=== PATIENT | male | born 1935 | race Caucasian/White ===

== ENCOUNTER 2017-07-11 17:20 | Inpatient (IN) | payer MEDICARE ==
[~2017-07-11] VITALS: Ht 175.3 cm; Wt 91.8 kg
[2017-07-11 17:59] LABS: BASOPHILS % (AUTO) 0.6 % (0-1); EOSINOPHILS # (AUTO) 0.1 X10'3 (0-0.9); EOSINOPHILS % (AUTO) 1.9 % (0-6); HEMOGLOBIN 16.5 g/dl (14.0-17.9); LYMPHOCYTES # (AUTO) 1.4 X10'3 (1.1-4.8); LYMPHOCYTES % (AUTO) 20.7 % (21-51); MEAN CORPUSCULAR HEMOGLOBIN 32.3 PG (27.0-31.0); MEAN CORPUSCULAR HGB CONC 35.1 % (33.0-36.5); MEAN CORPUSCULAR VOLUME 91.9 FL (78-98); MEAN PLATELET VOLUME 8.7 FL (7.4-10.4); MONOCYTES # (AUTO) 0.5 X10'3 (0-0.9); MONOCYTES % (AUTO) 6.6 % (2-12); NEUTROPHILS # (AUTO) 4.9 X10'3 (1.8-7.7); NEUTROPHILS % (AUTO) 70.2 % (42-75); PLATELET COUNT 135 X10'3 (140-440); RED BLOOD COUNT 5.11 X10'6 (4.70-6.10); RED CELL DISTRIBUTION WIDTH 14.2 % (11.5-14.5); WHITE BLOOD COUNT 6.9 X10'3 (4.5-11.0)
[2017-07-11 18:03] LABS: PARTIAL THROMBOPLASTIN TIME 27 SECONDS (22-32); PROTHROMBIN TIME 10.7 SECONDS (9.0-12.0)
[2017-07-11 18:10] LABS: ALANINE AMINOTRANSFERASE 44 U/L (12-78); ALBUMIN 4.1 G/DL (3.4-5.0); ALBUMIN/GLOBULIN RATIO 1.2 (1.1-1.5); ALKALINE PHOSPHATASE 112 IU/L (46-116); ANION GAP 10 (8-16); ASPARTATE AMINO TRANSFERASE 31 U/L (10-37); BILIRUBIN,TOTAL 0.5 MG/DL (0.1-1.0); BLOOD UREA NITROGEN 20 MG/DL (7-18); BUN/CREATININE RATIO 17.5 (5.4-32.0); CHLORIDE 106 MMOL/L (99-107); CREATININE 1.14 MG/DL (0.60-1.10); GLUCOSE 113 MG/DL (70-104); POTASSIUM 4.7 MMOL/L (3.5-5.1); SODIUM 143 MMOL/L (135-145); TOTAL CARBON DIOXIDE 26.8 MMOL/L (24-32); TOTAL PROTEIN 7.6 G/DL (6.4-8.2); eGFR 61 ML/MIN
[2017-07-11 18:13] LABS: CLARITY,URINE CLEAR (Clear); COLOR,URINE YELLOW (Yellow); GLUCOSE, URINE NEGATIVE (Neg); KETONES,URINE NEGATIVE (Neg); LEUKOCYTE ESTERASE ,URINE NEGATIVE (Neg); NITRITES, URINE NEGATIVE (Neg); OCCULT BLOOD,URINE TRACE-INTACT (Neg); PROTEIN,URINE 30 mg/dl (Neg); UROBILINOGEN,URINE 0.2 E.U/dL (0.2-1.0)
[2017-07-11 18:14] LABS: UA COLLECTION TYPE VOIDED
[2017-07-11 18:19] LABS: BACTERIA,URINE FEW /HPF (Neg); RBC,URINE 0-2 /HPF (0-2); SQUAMOUS EPITHELIAL CELL,UR FEW /LPF (FEW); WBC,URINE 0-4 /HPF (0-4)
[2017-07-11] MEDS ORDERED: aspirin 325mg tablet PO ONE (21:20)
[2017-07-11] MEDS ORDERED: acetaminophen 325mg tablet PO PRN (23:20)
[2017-07-11] MEDS ORDERED: ondansetron/PF 4mg/2ml inj IV PRN (23:20)
[2017-07-11] MEDS ORDERED: magnesium hydroxide 30ml (MOM) UD suspension PO PRN (23:20)
[2017-07-11] MEDS ORDERED: mag hydrox/Alum hydrox/simeth 30ml oral suspension PO PRN (23:20)
[2017-07-11] MEDS ORDERED: potassium Cl 40MEQ/NS 500ml 500 ML IV PRN ×2 (23:20)
[2017-07-11] MEDS ORDERED: potassium Cl 20 mEq SR tablet PO PRN ×2 (23:20)
[2017-07-11] MEDS ORDERED: dextrose 50%-water 50ml dispensing syringe IV PRN ×2 (23:25)
[2017-07-11] MEDS ORDERED: MESSAGE TO PHARMACY PO ONE (23:25)
[2017-07-11] MEDS ORDERED: insulin Lispro (HumaLOG) vial - multi-dose SQ SCH (23:25)
[2017-07-11] MEDS ORDERED: glucagon, human recombinant 1mg kit SUBCUT PRN (23:25)
[2017-07-11] MEDS ORDERED: dextrose ORAL solution 15 GM/59 ML bottle PO PRN ×2 (23:25)
[2017-07-12] MEDS: normal saline 1000ml 1,000 ML IV SCH ×2 (00:24→20:10)
[2017-07-12 03:20] VITALS: BP 163/71
[2017-07-12 05:00] VITALS: BP 175/76
[2017-07-12 05:55] LABS: BASOPHILS % (AUTO) 0.4 % (0-1); EOSINOPHILS # (AUTO) 0.1 X10'3 (0-0.9); EOSINOPHILS % (AUTO) 2.4 % (0-6); HEMATOCRIT 43.7 % (42.0-52.0); HEMOGLOBIN 15.5 g/dl (14.0-17.9); LYMPHOCYTES # (AUTO) 1.2 X10'3 (1.1-4.8); LYMPHOCYTES % (AUTO) 20.7 % (21-51); MEAN CORPUSCULAR HEMOGLOBIN 32.5 PG (27.0-31.0); MEAN CORPUSCULAR HGB CONC 35.5 % (33.0-36.5); MEAN CORPUSCULAR VOLUME 91.6 FL (78-98); MEAN PLATELET VOLUME 8.7 FL (7.4-10.4); MONOCYTES # (AUTO) 0.4 X10'3 (0-0.9); MONOCYTES % (AUTO) 6.4 % (2-12); NEUTROPHILS % (AUTO) 70.1 % (42-75); PLATELET COUNT 100 X10'3 (140-440); RED BLOOD COUNT 4.78 X10'6 (4.70-6.10); RED CELL DISTRIBUTION WIDTH 13.9 % (11.5-14.5); WHITE BLOOD COUNT 5.7 X10'3 (4.5-11.0)
[2017-07-12 06:25] LABS: ALBUMIN 3.6 G/DL (3.4-5.0); ANION GAP 10 (8-16); BLOOD UREA NITROGEN 16 MG/DL (7-18); CALCIUM 8.4 MG/DL (8.5-10.1); CHLORIDE 106 MMOL/L (99-107); CREATININE 1.14 MG/DL (0.60-1.10); GLUCOSE 104 MG/DL (70-104); POTASSIUM 3.8 MMOL/L (3.5-5.1); SODIUM 143 MMOL/L (135-145); TOTAL CARBON DIOXIDE 27.3 MMOL/L (24-32); eGFR 61 ML/MIN
[2017-07-12] MEDS ORDERED: losartan 50mg tablet PO SCH (08:00)
[2017-07-12] MEDS: K and/or MAG REPLACEMENT MC SCH (08:00)
[2017-07-12] MEDS: aspirin 81mg tablet.DR PO SCH (08:29)
[2017-07-12 10:00] VITALS: BP 108/72
[2017-07-12] MEDS ORDERED: TEST200V10 (10:42)
[2017-07-12] MEDS ORDERED: LOSA50TA37 PO (10:42)
[2017-07-12] MEDS ORDERED: METF10002 PO (10:42)
[2017-07-12] MEDS ORDERED: PARO20TA6 PO (10:42)
[2017-07-12] MEDS ORDERED: LEVO50TA PO (10:42)
[2017-07-12] MEDS ORDERED: SIMV40TA4 PO (10:42)
[2017-07-12 14:00] VITALS: BP 152/77
[2017-07-12 18:00] VITALS: BP 144/70
[2017-07-12] MEDS: PARoxetine 20mg tablet PO SCH (20:09)
[2017-07-12] MEDS: atorvastatin 10mg tablet PO SCH (20:09)
[2017-07-12] MEDS: losartan 25mg tablet PO SCH (20:09)
[2017-07-12] MEDS: insulin glargine (Lantus) pen - multi-dose SQ SCH (21:00)
[2017-07-12 22:00] VITALS: BP 144/64
[2017-07-13] VITALS (13 sets, daily range): BP systolic 132–161; BP diastolic 63–92
[2017-07-13 06:22] LABS: BASOPHILS % (AUTO) 0.2 % (0-1); EOSINOPHILS # (AUTO) 0.2 X10'3 (0-0.9); EOSINOPHILS % (AUTO) 2.8 % (0-6); HEMATOCRIT 43.7 % (42.0-52.0); HEMOGLOBIN 15.4 g/dl (14.0-17.9); LYMPHOCYTES # (AUTO) 1.1 X10'3 (1.1-4.8); LYMPHOCYTES % (AUTO) 18.3 % (21-51); MEAN CORPUSCULAR HEMOGLOBIN 32.7 PG (27.0-31.0); MEAN CORPUSCULAR HGB CONC 35.4 % (33.0-36.5); MEAN CORPUSCULAR VOLUME 92.5 FL (78-98); MEAN PLATELET VOLUME 8.6 FL (7.4-10.4); MONOCYTES # (AUTO) 0.4 X10'3 (0-0.9); MONOCYTES % (AUTO) 6.3 % (2-12); NEUTROPHILS # (AUTO) 4.4 X10'3 (1.8-7.7); NEUTROPHILS % (AUTO) 72.4 % (42-75); PLATELET COUNT 103 X10'3 (140-440); RED BLOOD COUNT 4.72 X10'6 (4.70-6.10); RED CELL DISTRIBUTION WIDTH 14.1 % (11.5-14.5); WHITE BLOOD COUNT 6.1 X10'3 (4.5-11.0)
[2017-07-13 06:27] LABS: ALBUMIN 3.5 G/DL (3.4-5.0); ANION GAP 8 (8-16); BLOOD UREA NITROGEN 14 MG/DL (7-18); BUN/CREATININE RATIO 14.1 (5.4-32.0); CALCIUM 8.5 MG/DL (8.5-10.1); CHLORIDE 107 MMOL/L (99-107); CREATININE 0.99 MG/DL (0.60-1.10); GLUCOSE 117 MG/DL (70-104); SODIUM 143 MMOL/L (135-145); TOTAL CARBON DIOXIDE 27.7 MMOL/L (24-32); eGFR 72 ML/MIN
[2017-07-13] MEDS: K and/or MAG REPLACEMENT MC SCH (07:17)
[2017-07-13] MEDS: aspirin 81mg tablet.DR PO SCH (07:18)
[2017-07-13] MEDS: levoTHYROXINE 25mcg tablet PO SCH (07:19)
[2017-07-13] MEDS: PARoxetine 20mg tablet PO SCH ×2 (07:19→20:20)
[2017-07-13] MEDS ORDERED: LEVOTHYROXINE SODIUM 50 MCG PO SCH (08:00)
[2017-07-13] MEDS: normal saline 1000ml 1,000 ML IV SCH (15:16)
[2017-07-13] MEDS ORDERED: fentaNYL/PF 50MCG/1 ML 2ML syringe ONE (16:01)
[2017-07-13] MEDS ORDERED: MIDAZolam 5mg/5ml vial ONE (16:01)
[2017-07-13] MEDS ORDERED: LIDOcaine Viscous 15ml cup ONE (16:01)
[2017-07-13] MEDS: pantoprazole 40mg Tablet.DR PO SCH (20:20)
[2017-07-13] MEDS: losartan 25mg tablet PO SCH (20:20)
[2017-07-13] MEDS: atorvastatin 10mg tablet PO SCH (20:20)
[2017-07-13] MEDS: insulin glargine (Lantus) pen - multi-dose SQ SCH (21:00)
[2017-07-14 02:00] VITALS: BP 151/74
[2017-07-14 05:00] VITALS: BP 157/74
[2017-07-14] MEDS: normal saline 1000ml 1,000 ML IV SCH (05:47)
[2017-07-14 06:39] LABS: BASOPHILS % (AUTO) 0.4 % (0-1); EOSINOPHILS # (AUTO) 0.2 X10'3 (0-0.9); EOSINOPHILS % (AUTO) 2.4 % (0-6); HEMATOCRIT 46.7 % (42.0-52.0); HEMOGLOBIN 15.8 g/dl (14.0-17.9); LYMPHOCYTES # (AUTO) 1.4 X10'3 (1.1-4.8); LYMPHOCYTES % (AUTO) 19.1 % (21-51); MEAN CORPUSCULAR HEMOGLOBIN 32.2 PG (27.0-31.0); MEAN CORPUSCULAR HGB CONC 33.9 % (33.0-36.5); MEAN CORPUSCULAR VOLUME 94.9 FL (78-98); MEAN PLATELET VOLUME 9.4 FL (7.4-10.4); MONOCYTES # (AUTO) 0.5 X10'3 (0-0.9); MONOCYTES % (AUTO) 6.8 % (2-12); NEUTROPHILS # (AUTO) 5.3 X10'3 (1.8-7.7); NEUTROPHILS % (AUTO) 71.3 % (42-75); PLATELET COUNT 98 X10'3 (140-440); RED BLOOD COUNT 4.93 X10'6 (4.70-6.10); WHITE BLOOD COUNT 7.4 X10'3 (4.5-11.0)
[2017-07-14 06:56] LABS: ALBUMIN 3.5 G/DL (3.4-5.0); ANION GAP 10 (8-16); BLOOD UREA NITROGEN 15 MG/DL (7-18); CALCIUM 8.5 MG/DL (8.5-10.1); CHLORIDE 105 MMOL/L (99-107); CREATININE 0.94 MG/DL (0.60-1.10); GLUCOSE 95 MG/DL (70-104); SODIUM 140 MMOL/L (135-145); TOTAL CARBON DIOXIDE 25.4 MMOL/L (24-32); eGFR 77 ML/MIN
[2017-07-14] MEDS: K and/or MAG REPLACEMENT MC SCH (07:25)
[2017-07-14] MEDS: aspirin 81mg tablet.DR PO SCH (07:35)
[2017-07-14] MEDS: levoTHYROXINE 25mcg tablet PO SCH (07:35)
[2017-07-14] MEDS: pantoprazole 40mg Tablet.DR PO SCH (07:36)
[2017-07-14] MEDS: PARoxetine 20mg tablet PO SCH (07:36)
[2017-07-14 10:00] VITALS: BP 151/73
[2017-07-14] MEDS ORDERED: OMEP20CA10 PO (11:37)
== END 2017-07-14 12:30 | disposition home or self-care (01) | DRG 698 ==
LOC: ER 17:21 → ED HOLD 23:16 → EDBEDREQ 07-12 02:04 → ORTHO 4S 07-12 03:20
PROVIDERS: ADMIT Family Medicine; ATTEND Internal Medicine
PROC: 0DB58ZX Excision of Esophagus, Via Natural or Artificial Opening Endoscopic, Diagnostic (ICD-10-PCS; principal; 2017-07-13)
PROC: 0DB68ZX Excision of Stomach, Via Natural or Artificial Opening Endoscopic, Diagnostic (ICD-10-PCS; 2017-07-13)
DX: N28.9 Disorder of kidney and ureter, unspecified (principal); G93.40 Encephalopathy, unspecified; G20 Parkinson's disease; R47.01 Aphasia; E11.9 Type 2 diabetes mellitus without complications; H35.30 Unspecified macular degeneration; K29.70 Gastritis, unspecified, without bleeding; F32.9 Major depressive disorder, single episode, unspecified; E03.9 Hypothyroidism, unspecified; E78.5 Hyperlipidemia, unspecified; F17.290 Nicotine dependence, other tobacco product, uncomplicated; G47.30 Sleep apnea, unspecified; I10 Essential (primary) hypertension; Z80.3 Family history of malignant neoplasm of breast; Z82.0 Family history of epilepsy and other diseases of the nervous system; Z83.3 Family history of diabetes mellitus
CPT/HCPCS: 36415; 43239; 70450; 71045; 80048; 80053; 81001; 82948; 83036; 84439; 84443; 84484; 85025; 85610; 85730; 87070; 92616; 93005; 97110; 97116; 97161; A4620; G0500; J1815; J2250; J3010; J7030

== ENCOUNTER 2017-10-02 13:09 | Inpatient (IN) | payer MEDICARE, OTHER ==
[~2017-10-02] VITALS: Ht 180.3 cm; Wt 81.0 kg
[~2017-10-02 13:09] MED LIST: LEVO50TA PO; LOSA50TA37 PO; METF10004 PO; OMEP20CA10 PO; PARO20TA6 PO; SIMV40TA4 PO; TEST200V10
[2017-10-02] MEDS ORDERED: normal saline 1000ML IV soln IVB ONE (13:15)
[2017-10-02 13:37] LABS: BASOPHILS % (AUTO) 0.2 % (0-1); EOSINOPHILS # (AUTO) 0.3 X10'3 (0-0.9); EOSINOPHILS % (AUTO) 3.5 % (0-6); HEMATOCRIT 41.8 % (42.0-52.0); HEMOGLOBIN 14.7 g/dl (14.0-17.9); LYMPHOCYTES # (AUTO) 1.5 X10'3 (1.1-4.8); LYMPHOCYTES % (AUTO) 19.6 % (21-51); MEAN CORPUSCULAR HEMOGLOBIN 32.6 PG (27.0-31.0); MEAN CORPUSCULAR HGB CONC 35.1 % (33.0-36.5); MEAN CORPUSCULAR VOLUME 92.9 FL (78-98); MEAN PLATELET VOLUME 8.2 FL (7.4-10.4); MONOCYTES # (AUTO) 0.5 X10'3 (0-0.9); MONOCYTES % (AUTO) 7.4 % (2-12); NEUTROPHILS # (AUTO) 5.2 X10'3 (1.8-7.7); NEUTROPHILS % (AUTO) 69.3 % (42-75); PLATELET COUNT 137 X10'3 (140-440); RED CELL DISTRIBUTION WIDTH 13.9 % (11.5-14.5); WHITE BLOOD COUNT 7.5 X10'3 (4.5-11.0)
[2017-10-02 13:46] LABS: PROTHROMBIN TIME 10.7 SECONDS (9.0-12.0)
[2017-10-02 14:38] LABS: ALANINE AMINOTRANSFERASE 30 U/L (12-78); ALBUMIN 3.8 G/DL (3.4-5.0); ALKALINE PHOSPHATASE 122 IU/L (46-116); ANION GAP 7 (8-16); ASPARTATE AMINO TRANSFERASE 24 U/L (10-37); BILIRUBIN,TOTAL 0.5 MG/DL (0.1-1.0); BLOOD UREA NITROGEN 20 MG/DL (7-18); BUN/CREATININE RATIO 14.8 (5.4-32.0); CHLORIDE 105 MMOL/L (99-107); CREATININE 1.35 MG/DL (0.60-1.10); GLUCOSE 102 MG/DL (70-104); POTASSIUM 4.1 MMOL/L (3.5-5.1); SODIUM 142 MMOL/L (135-145); TOTAL CARBON DIOXIDE 30.3 MMOL/L (24-32); TOTAL PROTEIN 7.6 G/DL (6.4-8.2); eGFR 51 ML/MIN
[2017-10-02 14:41] LABS: TROPONIN I < 0.04 NG/ML (0.0-0.05)
[2017-10-02] MEDS: normal saline 1000ml 1,000 ML IV SCH ×2 (15:28→17:33)
[2017-10-02] MEDS ORDERED: acetaminophen 325mg tablet PO PRN (15:30)
[2017-10-02] MEDS ORDERED: potassium Cl 40MEQ/NS 500ml 500 ML IV PRN ×2 (15:30)
[2017-10-02] MEDS ORDERED: potassium Cl 20 mEq SR tablet PO PRN ×2 (15:30)
[2017-10-02] MEDS ORDERED: magnesium 1gm/100ml D5W IVPB 100 ML IV PRN (15:30)
[2017-10-02] MEDS ORDERED: mag hydrox/Alum hydrox/simeth 30ml oral suspension PO PRN (15:30)
[2017-10-02] MEDS ORDERED: magnesium 4gm in 100ml NS 100 ML IV PRN (15:30)
[2017-10-02] MEDS ORDERED: magnesium hydroxide 30ml (MOM) UD suspension PO PRN (15:30)
[2017-10-02] MEDS ORDERED: ondansetron/PF 4mg/2ml inj IV PRN (15:30)
[2017-10-02] MEDS ORDERED: magnesium Cl slow-release 64mg tablet PO PRN (15:30)
[2017-10-02] MEDS ORDERED: glucagon, human recombinant 1mg kit SUBCUT PRN (15:35)
[2017-10-02] MEDS ORDERED: dextrose ORAL solution 15 GM/59 ML bottle PO PRN ×2 (15:35)
[2017-10-02] MEDS ORDERED: MESSAGE TO PHARMACY PO ONE (15:35)
[2017-10-02] MEDS ORDERED: dextrose 50%-water 50ml dispensing syringe IV PRN ×2 (15:35)
[2017-10-02] MEDS ORDERED: insulin Lispro (HumaLOG) vial - multi-dose SQ SCH (15:35)
[2017-10-02 16:11] LABS: HEMOGLOBIN A1C 6.1 % (4.5-6.2)
[2017-10-02 16:42] VITALS: BP 129/58
[2017-10-02] MEDS ORDERED: SIMV20TA PO (16:52)
[2017-10-02] MEDS ORDERED: LOSA25TA96 PO (16:53)
[2017-10-02] MEDS ORDERED: PARO-62 PO (16:53)
[2017-10-02] MEDS ORDERED: METF500T PO (16:54)
[2017-10-02] MEDS ORDERED: TEST200V10 IM (16:55)
[2017-10-02] MEDS ORDERED: LEVO50TA8 PO (16:56)
[2017-10-02] MEDS ORDERED: OCUVITE PO (16:57)
[2017-10-02] MEDS ORDERED: CLOP75TA15 PO (16:57)
[2017-10-02] MEDS ORDERED: CHOL2000 PO (16:58)
[2017-10-02 18:00] VITALS: BP 127/58
[2017-10-02] MEDS: clopidogrel 75mg tablet PO SCH ×2 (18:40→19:02)
[2017-10-02] MEDS: aspirin 81mg tablet.DR PO SCH (19:02)
[2017-10-02] MEDS: PARoxetine 20mg tablet PO SCH (20:56)
[2017-10-02] MEDS: heparin, porcine 5000 units/ml vial SQ SCH (20:56)
[2017-10-02] MEDS ORDERED: insulin glargine (Lantus) pen - multi-dose SQ SCH (21:00)
[2017-10-02 22:00] VITALS: BP 131/55
[2017-10-02 22:11] VITALS: BP_SYST 120; BP_SYST 128; BP_SYST 131; BP_DIAS 50; BP_DIAS 53; BP_DIAS 55
[2017-10-03 02:00] VITALS: BP 141/74
[2017-10-03 05:34] LABS: BASOPHILS % (AUTO) 0.6 % (0-1); EOSINOPHILS # (AUTO) 0.3 X10'3 (0-0.9); EOSINOPHILS % (AUTO) 5.1 % (0-6); HEMATOCRIT 38.6 % (42.0-52.0); HEMOGLOBIN 13.6 g/dl (14.0-17.9); LYMPHOCYTES # (AUTO) 1.1 X10'3 (1.1-4.8); LYMPHOCYTES % (AUTO) 20.2 % (21-51); MEAN CORPUSCULAR HEMOGLOBIN 32.3 PG (27.0-31.0); MEAN CORPUSCULAR HGB CONC 35.2 % (33.0-36.5); MEAN CORPUSCULAR VOLUME 91.7 FL (78-98); MEAN PLATELET VOLUME 8.4 FL (7.4-10.4); MONOCYTES # (AUTO) 0.4 X10'3 (0-0.9); MONOCYTES % (AUTO) 8.1 % (2-12); NEUTROPHILS # (AUTO) 3.6 X10'3 (1.8-7.7); PLATELET COUNT 111 X10'3 (140-440); RED BLOOD COUNT 4.21 X10'6 (4.70-6.10); RED CELL DISTRIBUTION WIDTH 13.6 % (11.5-14.5); WHITE BLOOD COUNT 5.5 X10'3 (4.5-11.0)
[2017-10-03] MEDS: normal saline 1000ml 1,000 ML IV SCH ×3 (05:46→09:15)
[2017-10-03 05:56] LABS: ALANINE AMINOTRANSFERASE 27 U/L (12-78); ALBUMIN 3.2 G/DL (3.4-5.0); ALBUMIN/GLOBULIN RATIO 0.9 (1.1-1.5); ALKALINE PHOSPHATASE 103 IU/L (46-116); ANION GAP 4 (8-16); ASPARTATE AMINO TRANSFERASE 18 U/L (10-37); BILIRUBIN,TOTAL 0.5 MG/DL (0.1-1.0); BLOOD UREA NITROGEN 17 MG/DL (7-18); BUN/CREATININE RATIO 14.8 (5.4-32.0); CALCIUM 8.5 MG/DL (8.5-10.1); CHLORIDE 107 MMOL/L (99-107); CHOL/HDL RATIO 3.1 (0.00-4.99); CHOLESTEROL 112 MG/DL (0-200); CREATININE 1.15 MG/DL (0.60-1.10); GLUCOSE 96 MG/DL (70-104); HDL CHOLESTEROL 36 MG/DL (35-60); LDL CHOLESTEROL 61 MG/DL (50-100); MAGNESIUM 1.6 MG/DL (1.5-2.4); POTASSIUM 4.6 MMOL/L (3.5-5.1); SODIUM 141 MMOL/L (135-145); TOTAL CARBON DIOXIDE 29.7 MMOL/L (24-32); TOTAL PROTEIN 6.6 G/DL (6.4-8.2); TRIGLYCERIDES 109 MG/DL (20-135); eGFR 61 ML/MIN
[2017-10-03 06:00] VITALS: BP 144/73
[2017-10-03] MEDS ORDERED: levoTHYROXINE 25mcg tablet PO SCH (07:00)
[2017-10-03] MEDS: clopidogrel 75mg tablet PO SCH ×2 (07:19→07:32)
[2017-10-03] MEDS: aspirin 81mg tablet.DR PO SCH (07:27)
[2017-10-03] MEDS: PARoxetine 20mg tablet PO SCH (07:32)
[2017-10-03] MEDS: heparin, porcine 5000 units/ml vial SQ SCH (07:36)
[2017-10-03 08:00] VITALS: BP_SYST 135; BP_SYST 137; BP_SYST 145; BP_DIAS 62; BP_DIAS 68; BP_DIAS 73
[2017-10-03] MEDS ORDERED: non-formulary drug (Cholecalciferol (Vitamin D3) (Vitamin D) 1 CAP) PO SCH (08:00)
[2017-10-03] MEDS ORDERED: non-formulary drug (Levothyroxine Sodium 1 TAB) PO SCH (08:00)
[2017-10-03] MEDS ORDERED: vitamin D (cholecalciferol) 1,000 unit tablet PO SCH (08:00)
[2017-10-03] MEDS ORDERED: atorvastatin 20mg tablet PO SCH (08:00)
[2017-10-03] MEDS ORDERED: K and/or MAG REPLACEMENT MC SCH (08:00)
[2017-10-03 10:00] VITALS: BP 135/62
[2017-10-03] MEDS ORDERED: ATOR20TA PO (13:12)
== END 2017-10-03 13:35 | disposition home or self-care (01) | DRG 682 ==
LOC: ER 13:09 → ED HOLD 15:28 → ORTHO 4S 16:33
PROVIDERS: ADMIT Internal Medicine; ATTEND Internal Medicine
DX: N17.9 Acute kidney failure, unspecified (principal); I63.9 Cerebral infarction, unspecified; J98.11 Atelectasis; E11.9 Type 2 diabetes mellitus without complications; E03.9 Hypothyroidism, unspecified; F32.9 Major depressive disorder, single episode, unspecified; E86.0 Dehydration; E78.00 Pure hypercholesterolemia, unspecified; R47.81 Slurred speech; I10 Essential (primary) hypertension; Z79.02 Long term (current) use of antithrombotics/antiplatelets; Z79.84 Long term (current) use of oral hypoglycemic drugs; Z79.899 Other long term (current) drug therapy; Z79.890 Hormone replacement therapy; Z86.73 Personal history of transient ischemic attack (TIA), and cerebral infarction without residual deficits; Z87.891 Personal history of nicotine dependence
CPT/HCPCS: 36415; 70450; 70544; 70551; 71045; 80053; 80061; 82948; 83036; 83735; 84484; 85025; 85610; 87070; 92616; 93005; 97116; 97161; J1644; J1815; J7030

== ENCOUNTER 2018-03-27 08:33 | Outpatient (CLI) | payer MEDICARE, OTHER ==
[~2018-03-27] VITALS: Ht 175.3 cm; Wt 89.8 kg
[~2018-03-27 08:33] MED LIST changes: +ATOR20TA PO; +CHOL2000 PO; +CLOP75TA15 PO; -LEVO50TA PO; +LEVO50TA8 PO; +LOSA25TA96 PO; -LOSA50TA37 PO; -METF10004 PO; +METF500T PO; +OCUVITE PO; -OMEP20CA10 PO; +PARO-62 PO; -PARO20TA6 PO; -SIMV40TA4 PO; -TEST200V10; +TEST200V10 IM
[2018-03-27] MEDS ORDERED: albuterol 2.5 MG/3 ML nebule NEB ONE (09:30)
[2018-03-27 19:33] LABS: TOTAL HEMOGLOBIN 16.5 G/dl (14.0-18.0)
== END 2018-03-27 23:59 | disposition home or self-care (01) ==
LOC: RT 08:33
PROVIDERS: ATTEND Internal Medicine
DX: J44.9 Chronic obstructive pulmonary disease, unspecified (principal); I10 Essential (primary) hypertension; E11.9 Type 2 diabetes mellitus without complications; Z96.651 Presence of right artificial knee joint; Z87.891 Personal history of nicotine dependence; Z79.899 Other long term (current) drug therapy
CPT/HCPCS: 85018; 94060; 94727; 94729; 94760

== ENCOUNTER 2018-05-28 06:47 | Day surgery (SDC) | payer MEDICARE, OTHER ==
[~2018-05-28] VITALS: Ht 175.3 cm; Wt 85.3 kg
[2018-05-28] VITALS (8 sets, daily range): BP systolic 64–150; BP diastolic 34–80
[~2018-05-28 06:47] MED LIST changes: +LIDOcaine 1% 30ml preserv. free vial SQ STA
[2018-05-28] MEDS ORDERED: ATOR40TA PO (07:32)
[2018-05-28] MEDS ORDERED: GABA-532 PO (07:32)
[2018-05-28 09:14] LABS: BASOPHILS # (AUTO) 0.1 X10'3 (0-0.2); BASOPHILS % (AUTO) 0.7 % (0-1); EOSINOPHILS # (AUTO) 0.1 X10'3 (0-0.9); EOSINOPHILS % (AUTO) 0.9 % (0-6); HEMATOCRIT 42.8 % (42.0-52.0); HEMOGLOBIN 14.5 g/dl (14.0-17.9); LYMPHOCYTES # (AUTO) 0.7 X10'3 (1.1-4.8); LYMPHOCYTES % (AUTO) 8.9 % (21-51); MEAN CORPUSCULAR HEMOGLOBIN 30.3 PG (27.0-31.0); MEAN CORPUSCULAR HGB CONC 33.9 g/dL (33.0-36.5); MEAN CORPUSCULAR VOLUME 89.2 FL (78-98); MEAN PLATELET VOLUME 8.3 FL (7.4-10.4); MONOCYTES # (AUTO) 0.7 X10'3 (0-0.9); MONOCYTES % (AUTO) 8.9 % (2-12); NEUTROPHILS # (AUTO) 6.3 X10'3 (1.8-7.7); NEUTROPHILS % (AUTO) 80.6 % (42-75); PLATELET COUNT 181 X10'3 (140-440); WHITE BLOOD COUNT 7.8 X10'3 (4.5-11.0)
[2018-05-28 09:26] LABS: ALANINE AMINOTRANSFERASE 42 U/L (12-78); ALBUMIN 3.2 G/DL (3.4-5.0); ALBUMIN/GLOBULIN RATIO 0.7 (1.1-1.5); ALKALINE PHOSPHATASE 147 IU/L (46-116); ANION GAP 6 (8-16); ASPARTATE AMINO TRANSFERASE 24 U/L (10-37); BILIRUBIN,TOTAL 0.6 MG/DL (0.1-1.0); BLOOD UREA NITROGEN 18 MG/DL (7-18); BUN/CREATININE RATIO 16.7 (5.4-32.0); CALCIUM 8.9 MG/DL (8.5-10.1); CHLORIDE 104 MMOL/L (99-107); CREATININE 1.08 MG/DL (0.60-1.10); GLUCOSE 124 MG/DL (70-104); POTASSIUM 4.4 MMOL/L (3.5-5.1); SODIUM 140 MMOL/L (135-145); TOTAL CARBON DIOXIDE 30.1 MMOL/L (24-32); TOTAL PROTEIN 7.7 G/DL (6.4-8.2); eGFR 65 ML/MIN
--- NOTE | 2018-05-28 10:11 | NUR ---
Received call from Dr. Stout, radiology. States pt needs to return for follow up chest x-ray. Dr. Stout states he is going to call Dr. Clay to review patient report.
--- NOTE | 2018-05-28 10:18 | NUR ---
Contacted pt's at home. Pt was "eating breakfast". states they can come back into the hospital, will be here in approx. 30 min.
[2018-05-28 10:39] LABS: BFAPPEAR HAZY; BFCOLOR AMBER
[2018-05-28 10:40] LABS: BF RBC COUNT 10700 /CU MM; BF WBC COUNT 1650 /CU MM (0-1000); BFVOLUME 640 ML; LYMPHOCYTES,BODY FLUID 95 %; MONOCYTES,BODY FLUID 2 %; NEUTROPHILS,BODY FLUID 3 %
--- NOTE | 2018-05-28 10:46 | NUR ---
contacted Dr. Clay to confirm plan of care for pt. Dr. Clay did confirm he had spoken to , radiologist. New order to retake pt cxr confirmed. Ordered to call MD once report is read, to review report and obtain discharge plan.
--- NOTE | 2018-05-28 11:00 | NUR ---
Escorted pt to radiology for repeat chest xray. pt appears comfortable, denies sob, denies cp. Pt states, "It's much easier to breath now, before I had to breath through my mouth", as patient makes panting motion with his mouth.
[2018-05-28 11:05] LABS: TOTAL PROTEIN,BODY FLUID 4.6 G/DL
--- NOTE | 2018-05-28 11:28 | NUR ---
Pt back from xray. Oscillated lung sounds. Clear in rt and lt upper anterior upper lobe, diminished in left lateral base, right lateral base clear.
== END 2018-05-28 11:28 | disposition home or self-care (01) ==
LOC: SSTAY O 06:47
PROVIDERS: ATTEND Internal Medicine Pulmonary Disease
DX: J90 Pleural effusion, not elsewhere classified (principal); E11.9 Type 2 diabetes mellitus without complications; I10 Essential (primary) hypertension; E78.5 Hyperlipidemia, unspecified; G47.30 Sleep apnea, unspecified; Z86.73 Personal history of transient ischemic attack (TIA), and cerebral infarction without residual deficits; Z87.891 Personal history of nicotine dependence; Z87.442 Personal history of urinary calculi; Z98.890 Other specified postprocedural states; Z96.659 Presence of unspecified artificial knee joint; Z79.899 Other long term (current) drug therapy; Z87.01 Personal history of pneumonia (recurrent)
CPT/HCPCS: 32555; 71045; 80053; 82378; 84157; 85025; 85651; 87070; 89051; C1729; J3490; 36415

== ENCOUNTER 2020-04-01 08:48 | Day surgery (SDC) | payer MEDICARE, OTHER ==
[~2020-04-01] VITALS: Ht 172.7 cm; Wt 89.6 kg
[~2020-04-01 08:48] MED LIST changes: -ATOR20TA PO; +ATOR40TA PO; +GABA-532 PO; -LIDOcaine 1% 30ml preserv. free vial SQ STA
[2020-04-01 09:30] VITALS: BP 141/75
[2020-04-01] MEDS ORDERED: albumin 25% 100mL bottle x 1 IV PRN (09:35)
[2020-04-01 09:45] VITALS: BP 147/95
[2020-04-01] MEDS ORDERED: POLY17PO10 PO (09:49)
[2020-04-01] MEDS ORDERED: RIVA20TA PO (09:49)
[2020-04-01] MEDS ORDERED: CARB1TAB44 PO (09:49)
[2020-04-01] MEDS ORDERED: PARO25TA17 PO (09:49)
[2020-04-01] MEDS ORDERED: FLO0.4C PO (09:49)
[2020-04-01 10:55] VITALS: BP 128/57
== END 2020-04-01 10:55 | disposition home or self-care (01) ==
LOC: SSTAY O 08:48
PROVIDERS: ATTEND Radiology Vascular & Interventional Radiology
DX: J90 Pleural effusion, not elsewhere classified (principal); E11.9 Type 2 diabetes mellitus without complications; E78.00 Pure hypercholesterolemia, unspecified; E03.9 Hypothyroidism, unspecified; I10 Essential (primary) hypertension; F17.290 Nicotine dependence, other tobacco product, uncomplicated; Z86.73 Personal history of transient ischemic attack (TIA), and cerebral infarction without residual deficits; Z72.89 Other problems related to lifestyle; Z79.01 Long term (current) use of anticoagulants; Z79.899 Other long term (current) drug therapy
CPT/HCPCS: 32555; 71045

== ENCOUNTER 2020-09-02 08:12 | Day surgery (SDC) | payer MEDICARE, OTHER ==
[~2020-09-02 08:12] MED LIST changes: +CARB1TAB44 PO; -CLOP75TA15 PO; +FLO0.4C PO; +LIDOcaine Viscous 15ml cup ONE; +MIDAZolam 1 MG/ML 5ML VIAL ONE; -OCUVITE PO; -PARO-62 PO; +PARO25TA17 PO; +POLY17PO10 PO; +RIVA20TA PO; -TEST200V10 IM; +fentaNYL/PF 50MCG/1 ML 2ML syringe ONE
[2020-09-02 08:34] VITALS: BP 125/60
[2020-09-02] MEDS ORDERED: FURO-150 PO (09:11)
[2020-09-02] MEDS ORDERED: FINA5TAB11 PO (09:12)
[2020-09-02] MEDS ORDERED: [UNRECOGNIZED DRUG - OTHER] (09:13)
[2020-09-02 09:15] VITALS: BP 139/63
[2020-09-02 09:25] VITALS: BP 125/71
[2020-09-02 09:35] VITALS: BP 130/69
[2020-09-02 09:45] VITALS: BP 130/73
== END 2020-09-02 09:50 | disposition home or self-care (01) ==
LOC: GI LAB 08:12
PROVIDERS: ATTEND Specialist
DX: R13.10 Dysphagia, unspecified (principal); E11.9 Type 2 diabetes mellitus without complications; Z87.891 Personal history of nicotine dependence; Z79.899 Other long term (current) drug therapy; Z79.84 Long term (current) use of oral hypoglycemic drugs
CPT/HCPCS: 43235; 43450; J2250; J3010; J7040; 99152; A4620